=== PATIENT | male | born 2000 | race Caucasian/White ===

== ENCOUNTER 2018-08-04 15:07 | Outpatient (CLI) | payer OTHER ==
[2018-08-04 15:54] LABS: Hemoglobin 16.7 g/dL (14.0-18.0); Mean Corpuscular Hemoglobin 30.4 pg (25.0-35.0); Mean Corpuscular Volume 89.4 fL (78.0-98.0); Mean Platelet Volume 6.9 fL (7.4-10.4); Platelet Count 264 thou/uL (130-400); RBC Distribution Width 11.3 % (11.5-14.5); Red Blood Cell (RBC) Count 5.49 mill/uL (4.00-5.20); White Blood Cell (WBC) Count 5.7 thou/uL (4.8-10.8)
== END 2018-08-04 15:08 | disposition home or self-care (01) ==
LOC: LABBT 15:07
PROVIDERS: ATTEND Orthopaedic Surgery
DX: Z01.812 Encounter for preprocedural laboratory examination (principal); M23.8X2 Other internal derangements of left knee
CPT/HCPCS: 85027

== ENCOUNTER 2018-08-12 07:03 | Day surgery (SDC) | payer OTHER ==
[2018-08-04 15:21] VITALS: BMI 31.0
[2018-08-12] MEDS ORDERED: CEFAZOLIN 2 GM/50 ML BAG ONE (08:09)
[2018-08-12] MEDS ORDERED: Midazolam HCl 2 mg/2 ml Vial ONE (09:28)
[2018-08-12] MEDS ORDERED: Fentanyl 100 MCG/2 ML VIAL ONE (09:28)
[2018-08-12] MEDS ORDERED: Bupivacaine/Epinephrine 0.25% 30 ML VIAL ONE (10:06)
[2018-08-12] MEDS ORDERED: Lidocaine 1% (PF) 30 ML VIAL ONE (10:06)
[2018-08-12] MEDS ORDERED: PROPOFOL 200 MG/20 ML VIAL ONE (16:03)
[2018-08-12] MEDS ORDERED: Ondansetron PF 4 MG/2 ML Vial ONE (16:03)
[2018-08-12] MEDS ORDERED: Dexamethasone 20 MG/5 ML VIAL ONE (16:03)
--- NOTE | 2018-08-14 17:08 | OP ---
DATE OF PROCEDURE: 08/12/2018 PREOPERATIVE DIAGNOSES: 1. Lateral patella facet cartilage defect. 2. Possible medial meniscus tear. POSTOPERATIVE DIAGNOSES: 1. No appreciated medial meniscus tear. 2. Grade 2 cartilage defect, patella lateral facet, without full-thickness damage . ANESTHESIA: The patient received an LMA with 25 mL of Marcaine 0.25% with epinephrine intra-articular mainly before the procedure and 10 mL lidocaine plain postprocedure. ANTIBIOTICS: Ancef 2 g. TOURNIQUET TIME: 15 minutes at 300 mmHg. COMPLICATIONS: None. INDICATIONS FOR PROCEDURE: Mr. Mullins is a 18-year-old male, who presented to me with knee pain. The patient had knee pain for quite some time, several years. He had an MRI that showed a medial meniscus tear as well as a medial joint line pain. The second MRI was performed, which showed subcortical signal and a partial-thickness tear of the lateral facet of the patella, but no meniscal tear or cruciate injury. I discussed with the patient the risks and benefits of arthroscopic evaluation of the medial meniscus. I discussed that we would only lightly debride the patella for any fibrillations, but we wound not do any microfracture or excessive debridement of the patella. I discussed that my plan was to evaluate his medial meniscus, debride and repair as needed. I discussed the risks and benefits of surgery, pain, scar, bleeding, infection, damage to vital structures, long-term risk of arthritis, need for further surgeries, failure of surgery despite surgical intervention. The patient understood these risks and benefits and elected to proceed. DESCRIPTION OF PROCEDURE: Time-out was performed designating the patient's left lower extremity was the operative site based on sight, consents, markings. After a brief time-out, the patient's left lower extremity was prepped and draped in the sterile fashion. Tourniquet was brought up to total of 15 minutes. I had injected 0.25% Marcaine with epinephrine about 5 minutes preprocedure, which was flushed out during our scope procedure. We then visualized fat pad, saw the ACL and PCL, where were intact. I looked into the patellofemoral facet. The patella had a chondral defect with a fibrillation of it. I could not completely measure the size of the defect, but it involved about 20% of the lateral facet. The patient had maintained good portion of the lateral facet. I took my shaver and perpendicular to the face of the patella just ran over to get any fibrillations, that were sticking out, but I did not directly debride onto the patella facet and/or microfracture of the facet. I looked into the medial and lateral gutters. I looked into the lateral joint space for any full-thickness cartilage defects. I looked into the medial joint space. I looked and saw intact meniscus. Meniscus was probed throughout, and I did not see a tear or any signs of tear throughout. I then went back, looked into the posterior root for any tears, which I did not see. I then looked again the lateral and the medial gutters to just ensure no meniscal tears were appreciated. I then went back, and I was happy with my debridement of the patella. I then washed, closed, and injected 10 mL of lidocaine plain into the joint. The joint was closed with 3-0 nylon. The patient will be weightbearing as tolerated. The patient's outlook is guarded. I will see him back in clinic in about 10 to 14 days. Job ID: [id number]
== END 2018-08-12 13:45 | disposition home or self-care (01) ==
LOC: SDC 07:03
PROVIDERS: ATTEND Orthopaedic Surgery
PROC: 0SBD4ZZ Excision of Left Knee Joint, Percutaneous Endoscopic Approach (ICD-10-PCS; principal; 2018-08-12)
DX: M23.8X2 Other internal derangements of left knee (principal)
CPT/HCPCS: G8978-GP-CJ; G8979-GP-CJ; G8980-GP-CJ; J1100; J2001; J2250; J2405; J2704; J3010